=== PATIENT | female | born 1995 | race Caucasian/White ===

== ENCOUNTER 2019-08-03 12:54 | Emergency (ER) | payer OTHER, SELFPAY ==
[2019-08-03] VITALS (24 sets, daily range): BP systolic 117–186; BP diastolic 59–91; PULSE 69–112; RESP 14–33; TEMP 36.9–37.2; O2SAT 95–99
--- NOTE | 2019-08-03 13:12 | W.ED.GENAD ---
Discharge Plan Disposition Patient Disposition: HOME Condition: Stable Discharge Details Chief Complaint: Palpitatns Clinical Impression: Dehydration, Palpitations Primary Care Provider: Jeannette Delgado ED Provider: Ligia Miguel Home Meds and New Rx's Prescriptions: Continued Vitafusion See Rx Instructions PO DAILY RF: 0 acetaminophen [Tylenol Extra Strength] 500 mg tablet 500 mg PO Q4H PRNRF: 0 Discharge Instructions Instructions: Palpitations (ED), Dehydration (ED) Additional Instructions: Drink plenty of fluids. Try to drink mainly water. Avoid sugary drinks. Limit caffeinated beverages. Follow-up with your scheduled appointment with your primary care doctor tomorrow. Return to the emergency department if you develop any worsening or new concerning symptoms. 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 She is states she did drink Yi vanilla coffee a few hours prior and coconut water but denies any other ingestions or meds. Denies any drug use. No OCP use. She denies fever, recent illness, chest pain, shortness of breath, dizziness. She does state that she feels somewhat uneasy. She does also admit to recent travel in the car 6 hours total 10 days ago. Heart rate 100s on arrival. EKG notes a rate of 114, sinus with no acute ST-T wave ischemic changes. BP hypertensive. Patient is obese. She appears in no acute distress and nontoxic. Differential diagnosis includes dehydration, caffeine, anxiety. History presentation not consistent with PE but due to recent travel, will check screening labs, d-dimer, urine , chest x-ray and will give a liter IV fluids and reassess. 1510 --labs and imaging reviewed and unremarkable. test negative. Patient feels much better. Heart rate 70s. She feels good to go home. She has an appointment with her primary care doctor tomorrow. She is advised to return here with any concerns. Medical Records Medical records reviewed: Yes I reviewed the patient's medical records. Imaging Data Radiologic Study: Radiologist's impression: XR CHEST 2V PA AND LATERAL INDICATION: palpitations, dizzy, r/o acute disease. COMPARISON: No exams were available for comparison TECHNIQUE: 2D digital imaging was performed. FINDINGS: Exam is limited by the patient's body habitus. The cardiac and mediastinal contours have a normal appearance. The lungs are clear. No infiltrate, effusion or pneumothorax is seen. There is no gross evidence of rib fracture or spine fracture. IMPRESSION: Negative chest x-ray Lab Data Lab results reviewed: Yes I reviewed the patient's lab results. Labs: Laboratory Tests Range/Units 08/03/19 08/03/19 08/03/19 13:12 13:12 13:12 WBC (4.4-10.8) k/cumm 9.95 RBC (4.00-5.20) m/cumm 5.21 H Hgb (12.0-15.5) g/dL 14.2 Hct (36.0-46.0) % 43.1 MCV (80-95) fL 82.7 MCH (27.0-33.0) pg 27.3 MCHC (32.0-36.0) g/dL 32.9 RDW (11.7-14.6) % 14.6 Plt Count (130-400) x1000/uL 387 MPV (8.0-11.0) fL 10.7 Immature Gran % 0.2 Neutrophils % 68.5 Lymphocytes % 22.5 Monocytes % 7.7 Eosinophils % 0.7 Basophils % 0.4 Absolute Neutrophils (1.2-6.7) k/cumm 6.81 H Absolute Lymphocytes (1.2-3.4) k/cumm 2.24 Absolute Monocytes (0.11-0.7) k/cumm 0.77 H Absolute Eosinophils (0.0-0.7) k/cumm 0.07 Absolute Basophils (0.0-0.2) k/cumm 0.04 D-Dimer (<500) ng/mlFEU 220 Sodium (136-145) mmol/L 141 Potassium (3.5-5.1) mmol/L 3.8 Chloride (98-107) mmol/L 103 Carbon Dioxide (21.0-32.0) mmol/L 28.7 Anion Gap (3-11) mmol/L 9.3 BUN (7-18) mg/dL 14 Creatinine (0.55-1.02) mg/dL 0.87 Estimated GFR/1.73 m2 (mL/min/1.73m2) >= 60.00 Glucose (74-106) mg/dL 111 H Calcium (8.5-10.1) mg/dL 9.3 Magnesium (1.8-2.4) mg/dL 1.8 Total Bilirubin (0.2-1.0) mg/dL 0.2 AST (15-37) U/L 19 ALT (14-59) U/L 49 Alkaline Phosphatase (46-116) U/L 87 Troponin I (<0.06) ng/Ml < 0.05 Total Protein (6.4-8.2) g/dL 8.5 H Albumin (3.4-5.0) g/dL 4.3 ECG Data Attestation: I personally reviewed and interpreted this ECG (s) as follows: Interpretation: Rate of 114, sinus, no acute ST elevation or depression. ME 144. QTc 443. QRS 90. HPI General Mode of arrival: ambulatory. Date/Time Provider Initiated Documentation: 08/03/19 13:02. Limitations to Documentation: no limitations. Information obtained by: patient. 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 She states she attempted to eat something but this did not help her symptoms. She went to the school nurse who checked her heart rate and it was ranging between 70s and 140s. Patient states she did have a hot chocolate, coconut water as well as a friend for milk coffee a couple hours prior to onset of her symptoms. She states she normally does not drink caffeine. She denies any other caffeinated energy drinks or coffee. She denies any supplements or pisf-xmz-krhtean medications or any other new prescribed medicines. She denies any alcohol or drug use. She denies any fever or recent illness, chest pain, shortness of breath, leg pain or swelling, recent surgery. She initially denied any recent travel but then states she did drive [address] to somewhere 10 days ago. She denies any dizziness sensation but does feel a slight woozy/uneasy feeling like she is bobbing from side to side . Related Data Home Medications Medication Instructions Recorded Confirmed Vitafusion See Rx Instructions PO DAILY 07/07/19 acetaminophen 500 mg tablet 500 mg PO Q4H PRN 07/07/19 08/03/19 Allergies Allergy/AdvReac Type Severity Reaction Status Date / Time peanut Allergy Severe Anaphylaxsi Verified 08/03/19 13:06 s bee venom protein (honey bee) Allergy Swelling Verified 08/03/19 13:06 hornet venom Allergy Swelling Verified 08/03/19 13:06 tree nut Allergy Anaphylaxsi Verified 08/03/19 13:06 s venom-wasp Allergy Swelling Verified 08/03/19 13:06 General Stated Complaint: Palpitatns ANA: 2 Review of Systems All systems reviewed & are unremarkable except as noted in HPI and below Constitutional Constitutional: Reports as per HPI, Denies chills and Denies fever(s) Eyes Eyes: Denies blurry vision ENT Ears, Nose, Mouth, and Throat: Denies dizziness, Denies sore throat and Denies throat swelling Cardiovascular Cardiovascular: Denies chest pain and Denies dyspnea Respiratory Respiratory: Denies cough and Denies dyspnea Gastrointestinal Gastrointestinal: Denies abdominal pain, Denies diarrhea and Denies vomiting Genitourinary Genitourinary: Denies hematuria and Denies dysuria Musculoskeletal Musculoskeletal: Denies back pain and Denies numbness Integumentary/Breasts Skin/Breast: Denies lesions and Denies rash Neurologic Neurologic: Denies dizziness, Denies focal weakness and Denies numbness Allergic/Immunologic Allergic/Immunologic: Denies throat swelling PFSH Medical History Migraine (Chronic) Surgical History No significant past surgical history (Acute) Family History Mother Asthma Father Hypertension Brother Asthma Maternal Grandfather , age 44 Diabetes Heart disease Hyperlipidemia Hypertension Paternal Grandfather Heart disease Hyperlipidemia Maternal Grandmother Diabetes Hyperlipidemia Hypertension Paternal Grandfather Heart disease Social History (Updated 07/01/19 @ 12:29 by Naresh Guillory) Smoking/Tobacco Use Status: Never Second Hand Exposure: Yes Alcohol Intake: current Alcohol Intake frequency: holidays/special occasions only Alcohol type: beer Drug use: Never Substance use type: does not use Caregiver/Support person: No Household members: family Housing: house Communication Needs: None Do you need help understanding health information?: Rarely Pets and animals: Yes Pets and animals: cat(s) and dog(s) Sexually active: No Do you think of yourself as: straight/heterosexual Current gender identity: female What is your relationship status?: never How often do you talk on the phone with friends or family?: three or more times per week How often do you get together with friends or relatives?: three or more times per week How often do you attend latter day or buddhism services?: 4 or more times per year Do you belong to any clubs or organized social groups?: no Panel score (0-1 are the most socially isolated patients): 2 What type of physical activity do you participate in: walking, other Details: skiing/snowboarding, dance and yoga Duration: 15-30 minutes/day Frequency: 3-4 times per week Bree/Zoroastrianism: Jehovah'S Witness Special bree needs: No Seatbelt use: always Helmet use: Yes Helmet use: always Drive intox or ride w/intox transit bus driver: No Exam Const General: cooperative, healthy appearing and no acute distress HENMT Head: normal to inspection Face and sinus: normal facial exam Eyes General: appearance normal, both eyes and all related structures Pupils: PERRL EOM: EOM intact bilaterally Neck Neck: normal visual inspection and No submandibular swelling Lymphatic: no lymphadenopathy noted Chest Chest: normal inspection of the chest and no tenderness Resp Effort & Inspection: normal respiratory effort and able to speak in complete sentences Auscultation: clear to auscultation bilaterally Cardio Rate: regular rate Rhythm: regular rhythm GI Inspection: normal to inspection Palpation: soft, not firm, not rigid and nontender Auscultation: normal bowel sounds Back/Spine/Pelvis Thoracic/Lumbar Spine: thoracic and lumbar spine normal to inspection Pelvis: no pain with anterior-posterior compression Skin General skin exam: no rashes or lesions noted Neuro General: alert, awake and oriented x3 Cognition: normal cognition Speech: speech normal Motor: muscle tone normal throughout Sensory Exam: no sensory deficits noted Extrem General: normal to inspection, full ROM, normal capillary refill, no calf tenderness bilaterally and no edema Psych Appearance: grossly normal Mental Status: mental status grossly normal Speech and Movement: speech and movement normal Affect: normal affect Course Vital Signs Vital signs: Vital Signs Temperature 98.4 F 08/03/19 13:01 Pulse 103 H 08/03/19 13:01 Respiratory Rate 16 08/03/19 13:01 Blood Pressure 186/91 H 08/03/19 13:01 Pulse Oximetry 98 08/03/19 13:01 Temperature 98.4 F 08/03/19 13:01 Temperature Source Skin 08/03/19 13:01 Pulse 103 H 08/03/19 13:01 Respiratory Rate 16 08/03/19 13:01 Respiratory Effort Non-Labored 08/03/19 13:01 Blood Pressure 186/91 H 08/03/19 13:01 Blood Pressure Position Sitting 08/03/19 13:01 Pulse Oximetry 98 08/03/19 13:01 Pain Level 0 08/03/19 13:01
--- NOTE | 2019-08-03 13:32 | DI.RAD_ITS ---
EXAM: XR CHEST 2V PA AND LATERAL INDICATION: palpitations, dizzy, r/o acute disease. COMPARISON: No exams were available for comparison TECHNIQUE: 2D digital imaging was performed. FINDINGS: Exam is limited by the patient's body habitus. The cardiac and mediastinal contours have a normal ap pearance. The lungs are clear. No infiltrate, effusion or pneumothorax is seen. There is no gross evidence of rib fracture or spine fracture. IMPRESSION: Negative chest x-ray
[2019-08-03] MEDS: Normal Saline 1,000 ML 1000 ML IV (13:42)
[2019-08-03 14:11] LABS: Abs Immature Grans 0.02 k/cumm (0.0-0.09); Absolute Basophil Count 0.04 k/cumm (0.0-0.2); Absolute Eosinophil Count 0.07 k/cumm (0.0-0.7); Absolute Lymphocyte Count 2.24 k/cumm (1.2-3.4); Absolute Monocyte Count 0.77 k/cumm (0.11-0.7); Absolute Neutrophil Count 6.81 k/cumm (1.2-6.7); Basophils % 0.4; Eosinophils % 0.7; HCT 43.1 % (36.0-46.0); HGB 14.2 g/dL (12.0-15.5); Immature Grans % 0.2; Lymphocytes % 22.5; Mean Corp. HGB Concentration 32.9 g/dL (32.0-36.0); Mean Corpuscular Hemoglobin 27.3 pg (27.0-33.0); Mean Corpuscular Volume 82.7 fL (80-95); Mean Platelet Volume 10.7 fL (8.0-11.0); Monocytes % 7.7; Neutrophils % 68.5; Platelet Count 387 x1000/uL (130-400); RBC 5.21 m/cumm (4.00-5.20); RBC Distribution Width 14.6 % (11.7-14.6); White Blood Cell Count 9.95 k/cumm (4.4-10.8)
[2019-08-03 14:13] LABS: ALT 49 U/L (14-59); AST 19 U/L (15-37); Albumin 4.3 g/dL (3.4-5.0); Alkaline Phosphatase 87 U/L (46-116); Anion Gap 9.3 mmol/L (3-11); BUN 14 mg/dL (7-18); Bilirubin, Total 0.2 mg/dL (0.2-1.0); CO2 28.7 mmol/L (21.0-32.0); CREATININE 0.87 mg/dL (0.55-1.02); Calcium 9.3 mg/dL (8.5-10.1); Chloride 103 mmol/L (98-107); Glucose 111 mg/dL (74-106); Magnesium 1.8 mg/dL (1.8-2.4); Potassium 3.8 mmol/L (3.5-5.1); Sodium 141 mmol/L (136-145); Total Protein 8.5 g/dL (6.4-8.2)
[2019-08-03 14:20] LABS: Troponin I < 0.05 ng/Ml (<0.06)
[2019-08-03 14:54] LABS: D-Dimer 220 ng/mlFEU (<500)
== END 2019-08-03 15:23 | disposition home or self-care (01) ==
PROVIDERS: Emergency Provider Physician Assistant; PCP Nurse Practitioner Family
DX: E86.0 Dehydration (principal); R00.2 Palpitations
CPT/HCPCS: 36415; 80053; 81025; 93005; 96360; 99285; 71046; 83735; 84484; 85025; 85379; 93010

== ENCOUNTER 2019-09-23 12:26 | Outpatient (REF) | payer OTHER, SELFPAY ==
--- NOTE | 2019-09-23 08:40 | PAPFT_PTH ---
PATIENT: Robbin Soriano LOC: [facility] U#:[id number] AGE/SX: 24/F ROOM: RE09/23/[address]: KAMI Moraes : 1995 BED: DIS: 09/23/2019 SPEC #: [id number] RECD: 09/23/19 12:59 STATUS: SANA CHISHOLM #: [id number] OLIVE: 09/23/19 08:[address]: Jeannette Delgado DEPT: REPLACED BY [facility] Cytology RECD BY: Savannah Sanders Tissues: 1 - CX/ENDOCX FOR PAP SMEARS Procedures: PAP THIN PREP/[facility] Screening Comments: [id number]
== END 2019-09-23 12:46 ==
LOC: LBN 12:26
PROVIDERS: PCP Nurse Practitioner Family; Visit Provider Nurse Practitioner Family
DX: Z12.4 Encounter for screening for malignant neoplasm of cervix (principal)
CPT/HCPCS: 88142

== ENCOUNTER 2023-01-17 08:37 | Outpatient (REF) | payer BC, SELFPAY ==
--- NOTE | 2023-01-17 08:00 | PAPFT_PTH ---
PATIENT: Robbin Soriano LOC: [facility] U#:[id number] AGE/SX: 27/F ROOM: RE01/17/[address]: KAMI Moraes : 1995 BED: DIS: 01/17/2023 SPEC #: [id number] RECD: 01/17/23 15:45 STATUS: SANA CHISHOLM #: [id number] OLIVE: 01/17/23 08:[address]: Jeannette Delgado DEPT: [facility] Cytology RECD BY: Savannah Sanders Tissues: 1 - CX/ENDOCX FOR PAP SMEARS Procedures: PAP THIN PREP/[facility] Screening Comments: [id number] (CHLAMYDIA/GC)
[2023-01-20 14:26] LABS: Chlamydia Result Negative (Negative); GC Result Negative (Negative)
== END 2023-01-17 08:38 | disposition home or self-care (01) ==
LOC: LBN 08:37
PROVIDERS: PCP Nurse Practitioner Family; Visit Provider Nurse Practitioner Family
DX: Z11.3 Encounter for screening for infections with a predominantly sexual mode of transmission (principal); Z12.4 Encounter for screening for malignant neoplasm of cervix
CPT/HCPCS: 87491; 87591; 88142